=== PATIENT | female | born 1995 | race Caucasian/White ===

== ENCOUNTER 2018-01-22 12:31 | Emergency (ER) | payer BC, OTHER ==
--- NOTE | 2018-01-22 13:46 | ER Document Report ---
HPI - HPI Patient complains to provider of: Pelvic cramping Onset/Duration: Gradual Quality of pain: Cramping Pain Level: 2 Context: Patient states that her last menstrual period was January 15 and that she had a positive test at home. Patient states that she was advised to come to the emergency department if she had any pelvic cramping. Patient denies any dysuria but does report frequency. Patient denies any vaginal bleeding or discharge. Associated Symptoms: Other - Pelvic cramping Exacerbated by: Denies Relieved by: Denies Similar symptoms previously: No Recently seen / treated by doctor: Yes - ROS ROS below otherwise negative: Yes Systems Reviewed and Negative: Yes All other systems reviewed and negative - CONSTITUTIONAL Constitutional: DENIES: Fever - NEURO Neurology: DENIES: Weakness - GASTROINTESTINAL Gastrointestinal: REPORTS: Abdominal Pain. DENIES: Nausea - URINARY Urinary: REPORTS: Frequency. DENIES: Dysuria, Urgency - REPRODUCTIVE Reproductive: DENIES: : - MUSCULOSKELETAL Musculoskeletal: DENIES: Extremity pain, Back Pain - DERM Skin Color: Normal Skin Problems: None Past Medical History - General Information source: Patient - Social History Smoking Status: Never Smoker Frequency of alcohol use: None Drug Abuse: None Occupation: [employer] Family History: Reviewed & Not Pertinent Pulmonary Medical History: Reports: Hx Asthma, Hx Bronchitis, Hx Pneumonia Neurological Medical History: Reports: Hx Migraine Musculoskeltal Medical History: Reports Hx Musculoskeletal Trauma - left fibula Traumatic Medical History: Reports: Hx Fractures Past Surgical History: Reports: Hx Myringotomy, Hx Oral Surgery, Hx Orthopedic Surgery - left leg x2 - Immunizations Immunizations up to date: Yes Hx Diphtheria, Pertussis, Tetanus Vaccination: Yes Vertical Provider Document - CONSTITUTIONAL Agree With Documented VS: Yes Exam Limitations: No Limitations General Appearance: WD/WN, No Apparent Distress - INFECTION CONTROL TRAVEL OUTSIDE OF THE [place] IN LAST 30 DAYS: No - HEENT HEENT: Atraumatic, Normocephalic - NECK Neck: Normal Inspection, Supple - RESPIRATORY Respiratory: Breath Sounds Normal, No Respiratory Distress O2 Sat by Pulse Oximetry: 99 - CARDIOVASCULAR Cardiovascular: Regular Rate, Regular Rhythm, No Murmur - GI/ABDOMEN Gastrointestinal: Abdomen Soft, Abdomen Non-Tender, No Organomegaly, Normal Bowel Sounds - BACK Back: Normal Inspection. negative: CVA Tenderness-Right, CVA Tenderness-Left - MUSCULOSKELETAL/EXTREMETIES Musculoskeletal/Extremeties: TACHO ANGULO - NEURO Level of Consciousness: Awake, Alert, Appropriate Motor/Sensory: No Motor Deficit - DERM Integumentary: Warm, Dry, No Rash Course - Re-evaluation Re-evalutation: 01/22/18 16:21 Discuss results of patient's diagnostic tests with her. Patient advised that she will need to have repeat blood work as well as a repeat ultrasound to confirm the status of her . Patient given good return precautions as well as concern about possible ectopic precautions. [facility] Discussed results of urinalysis and pending urine culture. - Vital Signs Vital signs: Temp Pulse Resp BP Pulse Ox 99.0 F 86 14 137/78 H 99 01/22/18 12:39 01/22/18 12:39 01/22/18 12:39 01/22/18 12:39 01/22/18 12:39 - Laboratory Laboratory results interpreted by me: 01/22/18 16:21 Labs- Entire Visit 01/22/18 01/22/18 01/22/18 14:10 14:10 14:10 Beta HCG, Quant 129.28 H Total Beta HCG POSITIVE Urine Color COLORLESS Urine Appearance CLEAR Urine pH 7.0 Ur Specific [place] 1.001 Urine Protein NEGATIVE Urine Glucose (UA) NEGATIVE Urine Ketones NEGATIVE Urine Blood NEGATIVE Urine Nitrite NEGATIVE Urine Bilirubin NEGATIVE Urine Urobilinogen NEGATIVE Ur Leukocyte Esterase MODERATE H Urine WBC (Auto) 19 Urine RBC (Auto) 0 Squamous Epi Cells Auto <1 Urine Mucus (Auto) RARE Urine Ascorbic Acid NEGATIVE Blood Type AB POSITIVE Rhogam Indicated RHOGAM NOT INDICATED - Diagnostic Test Radiology reviewed: Reports reviewed Discharge - Discharge Clinical Impression: Pelvic pain, test positive UTI (urinary tract infection) Qualifiers: Urinary tract infection type: site unspecified Hematuria presence: without hematuria Qualified Code(s): N39.0 - Urinary tract infection, site not specified Condition: Stable Disposition: HOME, SELF-CARE Instructions: Cephalexin ([facility]), Ectopic Precaution ([facility]), Urinary Tract Infection ([facility]) Additional Instructions: Return immediately for any new or worsening symptoms Followup with your primary care provider, call tomorrow to make a followup appointment Prescriptions: Cephalexin Monohydrate [Keflex 500 mg Capsule] 500 mg PO Q6H 5 Days capsule Referrals: DALLIN PANTOJA [Primary Care Provider] - Follow up as needed [facility] [Provider Group] - Follow up tomorrow
[2018-01-22 14:31] LABS: APPEARANCE,URINE CLEAR; BILIRUBIN,URINE NEGATIVE (NEGATIVE); COLOR,URINE COLORLESS; GLUCOSE, URINE NEGATIVE (NEGATIVE); KETONES,URINE NEGATIVE (NEGATIVE); LEUKOCYTE ESTERASE,URINE MODERATE (NEGATIVE); NITRITE,URINE NEGATIVE (NEGATIVE); PROTEIN,URINE NEGATIVE (NEGATIVE); URINE SPECIFIC GRAVITY 1.001; UROBILINOGEN,URINE NEGATIVE mg/dL (<2.0)
--- NOTE | 2018-01-22 16:06 | RADIOLOGY REPORT (SQ) ---
EXAM DESCRIPTION: U/S OB TRANSVAGINAL W/O DOP COMPLETED DATE/TIME: 01/22/2018 3:32 pm REASON FOR STUDY: cramping COMPARISON: None. TECHNIQUE: Transvaginal static and realtime grayscale images acquired of the pelvis. Additional nisa cted spectral and color Doppler images recorded. All images stored on PACs. [facility] LIMITATIONS: None. FINDINGS: UTERUS: No visualized intrauterine . RIGHT ADNEXA: Normal ovary with normal vascular flow. No adnexal free fluid. No adnexal masses. LEFT ADNEXA: Normal ovary with normal vascular flow. No adnexal free fluid. No adnexal masses. FREE FLUID: Trace free fluid. OTHER: No other significant finding. IMPRESSION: NO VISUALIZED INTRA- OR EXTRAUTERINE . bHCG LEVEL TOO LOW TO EXPECT VISUALIZATION OF . ECTOPIC CANNOT BE EXCLUDED. FOLLOW-UP ULTRASOUND AND SERIAL BHCG LEVELS STRONGLY RECOMMENDED TO ACCURATELY ASSESS STATU S. TECHNICAL DOCUMENTATION: JOB ID: [id number] [employer]- All Rights Reserved Reading location - IP/workstation name: [email or web address]
[2018-01-22] MEDS ORDERED: CEPHALEXIN 500 MG CAPSULE PO ONE (16:20)
[2018-01-22 16:44] VITALS: BP 112/65
== END 2018-01-22 16:46 | disposition home or self-care (01) ==
LOC: ER 12:31
DX: N39.0 Urinary tract infection, site not specified (principal); R10.2 Pelvic and perineal pain; R35.0 Frequency of micturition; J45.909 Unspecified asthma, uncomplicated; Z32.01 Encounter for pregnancy test, result positive
CPT/HCPCS: 36415; 76817; 81001; 84702; 86900; 86901; 87086; 87088; 87186; 99284

== ENCOUNTER 2018-11-02 18:19 | Emergency (ER) | payer BC, MEDICAID ==
[2018-11-02 21:48] LABS: ANION GAP 10 (5-19); BLOOD UREA NITROGEN 8 mg/dL (7-20); CALCIUM 9.1 mg/dL (8.4-10.2); CARBON DIOXIDE 24 mmol/L (22-30); CHLORIDE 104 mmol/L (98-107); GLUCOSE 79 mg/dL (75-110); POTASSIUM 3.9 mmol/L (3.6-5.0)
--- NOTE | 2018-11-02 22:35 | ER Document Report ---
ED General - General Chief Complaint: Leg Pain Stated Complaint: LEFT LEG PAIN, NUMBNESS Time Seen by Provider: 11/02/18 21:02 TRAVEL OUTSIDE OF THE [place] IN LAST 30 DAYS: No - HPI Patient complains to provider of: Left leg numbness Notes: Patient coming in for evaluation of left leg numbness. Patient is currently . Patient is a . Patient states numbness has been intermittent ongoing for greater than 24 hours. Patient denies any trauma denies any fever chills nausea vomiting diarrhea. Denies any numbness in the perineal region itself anesthesias no loss of bowel bladder function. Patient states the numbness is very intermittent however she does continue ability to bear weight and ambulate. - Related Data Allergies/Adverse Reactions: No Known Allergies Allergy (Unverified 03/09/13 20:36) Past Medical History - Social History Smoking Status: Never Smoker Family History: Reviewed & Not Pertinent Patient has suicidal ideation: No Patient has homicidal ideation: No Pulmonary Medical History: Reports: Hx Asthma, Hx Bronchitis, Hx Pneumonia Neurological Medical History: Reports: Hx Migraine Renal/ Medical History: Denies: Hx Peritoneal Dialysis Musculoskeletal Medical History: Reports Hx Musculoskeletal Trauma - left fibula Traumatic Medical History: Reports: Hx Fractures Past Surgical History: Reports: Hx Appendectomy, Hx Myringotomy, Hx Oral Surgery , Hx Orthopedic Surgery - left leg x2 - Immunizations Immunizations up to date: Yes Hx Diphtheria, Pertussis, Tetanus Vaccination: Yes Review of Systems - Review of Systems Constitutional: No symptoms reported EENT: No symptoms reported Cardiovascular: No symptoms reported Respiratory: No symptoms reported Gastrointestinal: No symptoms reported Genitourinary: No symptoms reported Female Genitourinary: No symptoms reported Musculoskeletal: No symptoms reported Skin: No symptoms reported Hematologic/Lymphatic: No symptoms reported Neurological/Psychological: Other - Numbness -: Yes All other systems reviewed and negative Physical Exam - Vital signs Vitals: Temp Pulse Resp BP Pulse Ox 98.2 F 75 14 116/67 100 11/02/18 18:28 11/02/18 18:28 11/02/18 18:28 11/02/18 18:28 11/02/18 18:28 Interpretation: Normal - General General appearance: Appears well, Alert - HEENT Head: Normocephalic, Atraumatic Eyes: Normal Pupils: PERRL - Respiratory Respiratory status: No respiratory distress Chest status: Nontender Breath sounds: Normal Chest palpation: Normal - Cardiovascular Rhythm: Regular Heart sounds: Normal auscultation Murmur: No - Abdominal Inspection: Normal Distension: No distension Bowel sounds: Normal Tenderness: Nontender Organomegaly: No organomegaly - Back Back: Normal, Nontender - Extremities General upper extremity: Normal inspection, Nontender, Normal color, Normal ROM , Normal temperature General lower extremity: Normal inspection, Nontender, Normal color, Normal ROM , Normal temperature, Normal weight bearing. No: Libertad's sign - Neurological Neuro grossly intact: Yes Cognition: Normal Orientation: AAOx4 [place] Coma Scale Eye Opening: Spontaneous Joe Coma Scale Verbal: Oriented Joe Coma Scale Motor: Obeys Commands [place] Coma Scale Total: 15 Speech: Normal Cranial nerves: Normal Motor strength normal: LUE, RUE, LLE, RLE Additional motor exam normals: Equal phlebotomist lab assistant Sensory: Normal Knee - Reflex grade: 2 = Normal - Psychological Associated symptoms: Normal affect, Normal mood - Skin Skin Temperature: Warm Skin Moisture: Dry Skin Color: Normal Course - Re-evaluation Re-evalutation: 11/03/18 00:12 Patient coming in for numbness of the left leg. Neurological evaluation does not reveal any critical pathology at this time. Patient does seem to have feeling in her feet with deep tendon reflexes at the knee intact. Explained to the patient I do believe more likely she is having intermittent numbness due to either the lie of the uterus or possibly stretching of the pelvic girdle because of the . Patient does not have any sciatic symptoms. Bedside ultrasound does show the heart rate of 136-140. Patient laboratory studies not show a little abnormalities compounding to paresthesias. Patient was encouraged follow-up primary care physician return to ER symptoms worsen. Patient stated understanding agrees this plan discharged home. - Vital Signs Vital signs: Temp Pulse Resp BP Pulse Ox 98.2 F 78 16 110/62 100 11/02/18 18:28 11/02/18 22:44 11/02/18 22:44 11/02/18 22:44 11/02/18 22:44 - Laboratory Result Diagrams: 11/02/18 20:30 Laboratory results interpreted by me: 11/02/18 20:30 Creatinine 0.51 L Discharge - Discharge Clinical Impression: Leg numbness Condition: Good Disposition: HOME, SELF-CARE Instructions: Numbness or Paresthesia ([facility]), ([facility]) Additional Instructions: heart tones today are 140 136. Baby has good motion. Do believe the numbness and tingling is you are feeling her leg is related to the position of her uterus or possibly the stretching of the pelvic girdle stretching and compressing nerves. Recommend continue take Tylenol for pain control make sure you drink plenty of fluids to stay well-hydrated. Your lecture lites are normal. Follow-up with your DIALYSIS RN at your next scheduled appointment return to the ER for any other complications or concerns. Referrals: VINNIE GREEN MD [Primary Care Provider] - Follow up as needed
[2018-11-02 22:47] VITALS: BP 110/62
== END 2018-11-02 22:44 | disposition home or self-care (01) ==
LOC: ER 18:19
DX: O26.90 Pregnancy related conditions, unspecified, unspecified trimester (principal); R20.0 Anesthesia of skin; M79.605 Pain in left leg; Z3A.00 Weeks of gestation of pregnancy not specified
CPT/HCPCS: 36415; 80048; 83735; 99283